=== PATIENT | female | born 2000 | race Two or more races ===

== ENCOUNTER 2025-07-23 20:00 | Emergency (ER) | payer MEDICAID, SELFPAY ==
[2025-07-23 20:02] VITALS: BP 115/72; PULSE 70; RESP 18; TEMP 36.7; O2SAT 96; BMI 31.8
--- NOTE | 2025-07-23 20:16 | XR_ITS ---
EXAMINATION: PA chest single view TECHNIQUE: Upright PA chest single view Date and time: July 26, 2025, 2015 hours INDICATIONS: Coughing beginning 1 month ago. FINDINGS: Normal heart size Lungs are clear. Osseous structures are intact IMPRESSION: No active disease
[2025-07-23] MEDS: DEXAMETHASONE SOD PHOS INJ 10 MG/ML VIAL IM (20:33)
[2025-07-23] MEDS: ALBUTEROL/IPRATROPIUM (Duoneb) RT SOL 3 ML NEBU INH (20:38)
[2025-07-23 20:39] VITALS: PULSE 72; RESP 18; O2SAT 99
--- NOTE | 2025-10-07 10:31 | PD.EDURI ---
Upper Respiratory Inf. RME/HPI General Chief Complaint: Flu Like Symptoms Stated Complaint: PERSISTANT COUGH Time Seen by Provider: 07/23/25 20:16 Arrival date/time: 07/23/25 20:00 This is a case of 25-year-old female with no medical history came in in the emergency room due to productive cough of and on for 1 month with nasal congestion persistence of the symptoms this patient decided to sought consult here in the emergency room no shortness of breath no chest pain no wheezing Limitations: no limitations Related Data Previous Rx's ?Medication ?Instructions ?Recorded albuterol sulfate 90 mcg/actuation 1 puff inhalation Q4H PRN 07/23/25 aerosol inhaler (Ventolin HFA) shortness of breath or wheezing #8.5 grams montelukast 10 mg tablet 10 mg PO QDAY #30 tabs 07/23/25 (Singulair) promethazine-DM 6.25 mg-15 mg/5 mL 5 ml PO Q4H PRN cough #118 mL 07/23/25 oral syrup sulfamethoxazole 800 1 tab PO Q12H #20 tabs 07/23/25 mg-trimethoprim 160 mg tablet (Bactrim DS) Allergies Allergy/AdvReac Type Severity Reaction Status Date / Time No Known Allergies Allergy Verified 07/23/25 20:07 Review of Systems Review of Systems Systems Reviewed: All systems reviewed, normal except as documented Past Medical History Past Medical History CARDIAC: Negative Congestive Heart Failure RESPIRATORY: Negative Chronic Obstructive Pulmonary Disease (COPD) GENITOURINARY: Negative Renal Disease ENDOCRINE: Negative Diabetes Mellitus Type 1 or Diabetes Mellitus Type 2 Social History SMOKING STATUS: Never smoker ED Exam General Limitations: Present no limitations General appearance: Present alert, in no apparent distress and other (Patient is awake alert patient is awake alert oriented not in distress nontoxic looking) Head Head exam: Present atraumatic, normocephalic and normal inspection Eye Eye exam: Present normal appearance, PERRL and EOMI ENT ENT exam: Present normal exam, normal oropharynx, mucous membranes moist and other (HEENT exam is normal and unremarkable) Neck Neck exam: Present normal inspection, full ROM and trachea midline Chest Chest inspection: Present normal inspection and symmetric chest wall rise Respiratory Respiratory exam: Present normal lung sounds bilaterally and wheezes (Wheezing both lower lung field no crackles no rales no retraction no stridor); Absent respiratory distress Cardiovascular Cardiovascular exam: Present regular rate, normal rhythm and normal heart sounds; Absent bradycardia, tachycardia, irregular rhythm, systolic murmur or diastolic murmur Abdominal Exam Abdominal exam: Present soft and normal bowel sounds Extremities Exam Extremities exam: Present normal inspection and full ROM Back Exam Back exam: Present normal inspection and full ROM Neurological Exam Neurological exam: Present alert, oriented X3 and CN II-XII intact Psychiatric Psychiatric exam: Present normal affect and normal mood Skin Skin exam: Present warm, dry, intact and normal color Course Quality Measures none Orders Category Date Time Status XR chest 1V Stat Exams 07/23/25 20:16 Completed Albuterol/Ipratr Rt Vivien [Duoneb Rt Vivien] Med 07/23/25 20:16 Discontinued 3 ml INH X1 ONE dexAMETHasone INJ [Decadron Inj] Med 07/23/25 20:16 Discontinued 10 mg IM X1 ONE Vital Signs Vital signs: Vital Signs Temperature 98.1 F 07/23/25 20:02 Pulse Rate 70 07/23/25 20:02 Respiratory Rate 18 07/23/25 20:02 Blood Pressure 115/72 07/23/25 20:02 Pulse Oximetry (%) 96 07/23/25 20:02 Oxygen Delivery Method Room Air 07/23/25 20:02 Vital signs stable Upper Respiratory Infection MDM Narrative MDM Narrative:: Patient was discharged with comfortable condition walking with stable gait. Patient verbalized no further complains explained diagnosis and answered patient question. Patient is comfortable with the proposed management plan including the need to follow up with his/her primary care physician and any specialist if applicable Discussed patient for any urgent condition or worsening sx, He/She needed to go to emergency room immediately or call 911. Patient acknowledge the responsibility to follow up as instructed and to monitor her/his symptoms. For any persistence of the symptoms for more than 3-5 days return precaution advised. Discussed the result of the test and was given printed discharge instruction Patient data External records reviewed:: [facility] previous records Clinical information provided by:: patient Social determinants that could affect healthcare access:: none Patient has the following chronic illnesses:: None How is presenting disease/condition affected by chronic disease/condition?: no chronic disease Evaluation data The following diagnostics were reviewed and interpreted by me:: radiology exam(s) Lab and/or radiology exams considered but not ordered:: Reviewed Interpretation Summary: Reviewed Medications / Prescriptions Medications or Prescriptions considered but not ordered:: Given Medication administrations:: Medication Administration History Discontinued Medications Albuterol/Ipratropium (Albuterol/Ipratropium (Duoneb) Rt Vivien 3 Ml Nebu) 3 ml INH X1 ONE Stop: 07/23/25 20:17 Last Admin: 07/23/25 20:38 Dose: 3 ml Documented By: GERTRUDE Dexamethasone Sodium Phosphate (Dexamethasone Sod Phos Inj 10 Mg/Ml Vial) 10 mg IM X1 ONE Stop: 07/23/25 20:17 Last Admin: 07/23/25 20:33 Dose: 10 mg Documented By: MF Given Consultations Consultation(s) initiated? (list below): No Diagnosis Upper Respiratory Differential Diagnosis: upper respiratory infection, sinusitis, viral infection, influenza and pharyngitis Most likely diagnosis given after review of the tests above:: Acute bronchitis Admission Indicated Admission indicated?: not indicated Explain why admission is indicated or not indicated:: Not indicated Admission Request Was there a request for admission?: No Admission Attestation Admission request attestation: Not indicated Disposition Plan Disposition Plan: Discharge Discharge Attestation Discharge Attestation: The patient and all family members were given an opportunity to ask questions and understood the discharge instructions. Discharge instructions specifically effects, indications for sooner follow up or return to the emergency department, and the expected course of current diagnosis. Patient condition: Stable Discharge Plan Plan Patient Disposition: HOME (Self Care) Patient condition on transfer: Stable Prescriptions/Referrals Prescriptions/Med Rec: New sulfamethoxazole-trimethoprim [Bactrim DS] 800-160 mg tablet 1 tab PO Q12H Qty: 20 0RF albuterol sulfate [Ventolin HFA] 90 mcg/actuation HFA aerosol inhaler 1 puff inhalation Q4H PRN (Reason: shortness of breath or wheezing) Qty: 8.5 0RF Rx Instructions: Please give promethazine-DM 6.25-15 mg/5 mL syrup 5 ml PO Q4H PRN (Reason: cough) Qty: 118 0RF montelukast [Singulair] 10 mg tablet 10 mg PO QDAY Qty: 30 0RF Referrals: Hector Johnston MD [Primary Care Provider, Family Practice] - In 1 week Problem List Clinical Impression: Acute bronchitis Patient/Caregiver Discharge Instructions Education Materials: Acute Bronchitis Additional Instructions: Follow-up with your primary care physician in 2 days for reevaluation worsening symptoms or any emergent concern call 911 or go to the nearest emergency room take your medication as directed take vitamin C daily keep hydrated Print Language: Slovenian Stand Alone Forms: [employer] Award Info., Patient Portal Info Letter PA/LOGGING TRACTOR OPERATOR SWAMP Supervising Physician PA/LOGGING TRACTOR OPERATOR SWAMP Supervising Physician: Dr. Bonner
== END 2025-07-23 21:20 | disposition home or self-care (01) ==
PROVIDERS: Emergency Provider Emergency Medicine; PCP Family Medicine
DX: J20.9 Acute bronchitis, unspecified (principal)
CPT/HCPCS: 71045; 94640; 96372; 99283; A9270; J1100